=== PATIENT | male | born 1960 | race Caucasian/White ===

== ENCOUNTER → 2017-04-24 | Outpatient (CLI) | payer OTHER ==
--- NOTE | 2017-04-24 10:09 | CARD ---
APPROVED REPORT EXAM: Two-dimensional and M-mode echocardiogram with Doppler and color Doppler. Other Information Quality : Average Rhythm : NSR INDICATION Aortic Valve Disease 2D DIMENSIONS RVDd3.1 (2.9-3.5cm)Left Atrium(2D)3.3 (1.6-4.0cm) IVSd1.0 (0.7-1.1cm)Aortic Root(2D)3.4 (2.0-3.7cm) LVDd5.9 (3.9-5.9cm)LVOT Diameter2.3 (1.8-2.4cm) PWd1.0 (0.7-1.1cm)LVDs4.1 (2.5-4.0cm) FS (%) 29.5 %SV95.0 ml LVEF(%)55.6 (>50%) Aortic Valve AoV Peak Tyron.113.5cm/sAoV VTI20.2cm AO Peak GR.5.2mmHgLVOT Peak Tyron.89.1cm/s LVOT VTI 18.28cmAO Mean GR.3mmHg REEMA (VMAX)3.53zb6XPM (VTI)3.86cm2 Mitral Valve MV E Orvlaubg72.9cm/sMV DECEL [id number] MV A Dwefcjdk58.7cm/sMV KOJ72vw E/A Ratio1.2MV A Nlztxnqx819iu MVA (PHT)2.84cm2 TDI E/Lateral E'6.3E/Medial E'7.4 Pulmonary Valve PV Peak Qctsjmav30.9cm/sPV Peak Grad.4mmHg RVOT VTI11.7cm Tricuspid Valve TR P. Neiegann572ng/sRAP HVUQAGQH9afZj TR Peak Gr.97kgTsPJUC74mzIa Pulmonary Vein S1 Kgjagxik50.6cm/sD2 Aewrxnkx64.2cm/s LEFT VENTRICLE The left ventricle is normal size. There is normal left ventricular wall thickness. Left ventricle sy stolic function is normal. The Ejection Fraction is 50-55%. There is normal LV segmental wall motion. The left ventricular diastolic function and filling is normal for age. There is no ventricular septa l defect visualized. RIGHT VENTRICLE The right ventricle is normal size. The right ventricular systolic function is normal. ATRIA The left atrium size is normal. The right atrium size is normal. The interatrial septum is intact wit h no evidence for an atrial septal defect or patent foramen ovale as noted on 2-D or Doppler imaging. AORTIC VALVE The aortic valve is normal in structure and function. The aortic valve appears to be trileaflet. Dopp ler and Color Flow revealed no significant aortic regurgitation. There is no significant aortic valvu lar stenosis. MITRAL VALVE The mitral valve is normal in structure and function. There is no mitral valve stenosis. Doppler and Color Flow revealed trace to mild mitral regurgitation. TRICUSPID VALVE The tricuspid valve is normal in structure and function. Doppler and Color Flow revealed mild tricusp id regurgitation. The PA pressure was estimated at 23 mmHg. There is no tricuspid valve stenosis. PULMONIC VALVE The pulmonic valve is not well visualized. Doppler and Color Flow revealed no pulmonic valvular regur gitation. There is no pulmonic valvular stenosis. GREAT VESSELS The aortic root is normal in size. The ascending aorta is normal in size. Normal pulmonary venous kartik w (Doppler). The IVC is normal in size and collapses >50% with inspiration. PERICARDIAL EFFUSION There is no evidence of significant pericardial effusion. Critical Notification Critical Value: No <Conclusion> The left ventricle is normal size. Left ventricle systolic function is normal. The Ejection Fraction is 50-55%. There is normal left ventricular wall thickness. The aortic valve is normal in structure and function. The aortic valve appears to be trileaflet. There is no significant aortic valvular stenosis. Doppler and Color Flow revealed no significant aortic regurgitation. Doppler and Color Flow revealed trace to mild mitral regurgitation. Doppler and Color Flow revealed mild tricuspid regurgitation. The PA pressure was estimated at 23 mmHg.
== END | disposition home or self-care (01) ==
LOC: ECHO 08:29
PROVIDERS: ATTEND Internal Medicine Cardiovascular Disease
DX: I07.1 Rheumatic tricuspid insufficiency (principal); Q23.1 Congenital insufficiency of aortic valve
CPT/HCPCS: 93306